=== PATIENT | female | born 2005 | race Two or more races ===

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

== ENCOUNTER 2023-01-13 20:48 | Emergency (ER) | payer OTHER ==
[~2023-01-13] VITALS: Ht 162.6 cm; Wt 70.3 kg
== END 2023-01-13 21:54 | disposition home or self-care (01) ==
LOC: ER 20:48 → EMR PED 20:52
DX: T22.10XA Burn of first degree of shoulder and upper limb, except wrist and hand, unspecified site, initial encounter (principal); X08.8XXA Exposure to other specified smoke, fire and flames, initial encounter; Y93.89 Activity, other specified; Y92.511 Restaurant or cafe as the place of occurrence of the external cause; Y99.8 Other external cause status; Z88.8 Allergy status to other drugs, medicaments and biological substances

== ENCOUNTER 2023-03-10 16:54 | Emergency (ER) | payer OTHER ==
[~2023-03-10] VITALS: Ht 162.6 cm; Wt 71.7 kg
== END 2023-03-10 17:30 | disposition home or self-care (01) ==
LOC: EMR PED 16:54 → ER 16:56 → EMR PED 16:56 → ER 17:30
DX: R53.81 Other malaise (principal); J10.1 Influenza due to other identified influenza virus with other respiratory manifestations; Z88.9 Allergy status to unspecified drugs, medicaments and biological substances